=== PATIENT | female | born 1965 | race Caucasian/White ===

== ENCOUNTER 2020-02-24 11:14 | Outpatient (CLI) | payer OTHER | END 2020-02-24 20:32 | disposition home or self-care (01) | LOC: MLB 11:14 | PROVIDERS: ATTEND Obstetrics & Gynecology | DX: Z20.828 Contact with and (suspected) exposure to other viral communicable diseases (principal) ==

== ENCOUNTER 2020-07-08 17:28 | Inpatient (IN) | payer OTHER, SELFPAY ==
[~2020-07-08] VITALS: Ht 180.3 cm; Wt 68.9 kg
--- NOTE | 2020-07-08 17:38 | NUR ---
Patient ambulated with steady gait to bed 7.
--- NOTE | 2020-07-08 17:38 | NUR ---
DR GASTELUM AT BEDSIDE
[2020-07-08] MEDS ORDERED: DILTIAZEM 25 MG/5 ML VIAL IVP ONE ×2 (17:40→18:20)
[2020-07-08 17:42] VITALS: BP 153/89
--- NOTE | 2020-07-08 17:42 | NUR ---
55 Y/O FEMALE BIB , DR MITCHELL C/O RAPID HEART RATE AT 1300. DR MITCHELL, COMPLETED EKG AT HIS OFFICE WHICH SHOWED A FIB. PER , HE FOUND HIS SLUMPED AT HER DESK. PT STATED SHE FELT HER HEART RACING. DENIES N/V/SOB AND PAIN AT THIS TIME. PT DENIES LIGHTHEADEDNESS/DIZZINESS. PT IS A/O X4 WITH EVEN AND UNLABORED RESPIRATIONS. PT LAYING IN BED WITH BED IN LOWEST POSITION, BRAKES LOCKED, X1 SIDERAIL UP. 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
--- NOTE | 2020-07-08 17:45 | NUR ---
RAD AT BEDSIDE
[2020-07-08] MEDS ORDERED: NACL 0.9% 1,000 ML IV ONE (18:05)
[2020-07-08 18:12] LABS: BASOPHILS # (AUTO) 0.1 K/uL (0.00-0.22); BASOPHILS % (AUTO) 0.9 % (0.0-2.0); EOSINOPHILS # (AUTO) 0.1 K/uL (0-0.4); EOSINOPHILS % (AUTO) 1.2 % (0.0-4.0); HEMATOCRIT 47.7 % (36-48); HEMOGLOBIN 16.2 g/dL (12.0-16.0); LYMPHOCYTES # (AUTO) 1.5 K/uL (2.5-16.5); LYMPHOCYTES % (AUTO) 26.9 % (20.5-51.1); MEAN CORPUSCULAR HEMOGLOBIN 33 pg (27-31); MEAN CORPUSCULAR HGB CONC 34 g/dL (33-37); MEAN CORPUSCULAR VOLUME 96.5 fL (80-94); MONOCYTES # (AUTO) 0.7 K/uL (0.8-1.0); MONOCYTES % (AUTO) 13.1 % (1.7-9.3); NEUTROPHILS # (AUTO) 3.2 K/uL (1.8-7.7); NEUTROPHILS % (AUTO) 57.9 % (42.2-75.2); PLATELET COUNT (AUTO) 200 K/uL (140-450); RED BLOOD CELL COUNT(AUTO) 4.94 MIL/uL (4.20-5.40); RED CELL DISTRIBUTION WIDTH 12.7 % (11.6-13.7); WHITE BLOOD COUNT (AUTO) 5.5 K/uL (4.8-10.8)
[2020-07-08 18:28] LABS: ANION GAP 11.8 (8-16); CARBON DIOXIDE 26.9 mmol/L (21-32); CREATININE 0.7 mg/dL (0.6-1.3); POTASSIUM 3.7 mmol/L (3.5-5.1); TOTAL BILIRUBIN 0.4 mg/dL (0.0-1.0)
[2020-07-08 18:38] LABS: FREE T4 (FREE THYROXINE) 1.05 ng/dL (0.76-1.46); THYROID STIMULATING HORMONE 0.02 uIU/mL (0.34-3.74)
[2020-07-08] MEDS ORDERED: DILTIAZEM 125 MG in DEXTROSE 5% 100 ML IV ONE (18:40)
[2020-07-08] MEDS ORDERED: DILTIAZEM 125 MG/25 ML VIAL IV ONE (18:46)
[2020-07-08] MEDS ORDERED: METOPROLOL 5 MG/5 ML VIAL IVP ONE (19:00)
--- NOTE | 2020-07-08 19:12 | NUR ---
REPORT GIVEN TO SYLVIE SCHWARTZ. TRANSFER OF CARE AT THIS TIME.
--- NOTE | 2020-07-08 19:13 | NUR ---
RECEIVED TRANSFER OF CARE REPORT FROM CHAPARRITA SCHWARTZ FOR CONTINUATION OF CARE.
--- NOTE | 2020-07-08 19:24 | NUR ---
PT WAS FOUND AWAKE IN SEMI-GAMBLE'S POSITION IN BED. PT STATES NO PAIN AND NO DISTRESS. BED LOCKED IN LOWEST POSITION WITH 1 SIDE RAIL UP. WILL CONTINUE TO MONITOR.
--- NOTE | 2020-07-08 19:50 | NUR ---
ERICA SWAB COLLECTED AND WALKED TO LAB.
[2020-07-08] MEDS ORDERED: PROPOFOL 200 MG/20 ML VIAL IV ONE (20:25)
[2020-07-08] MEDS ORDERED: MIDAZOLAM 2 MG/2 ML VIAL IVP ONE (20:25)
--- NOTE | 2020-07-08 20:31 | NUR ---
PT WAS EDUCATED RISK AND BENEFITS ON CONSCIOUS SEDATION FOR CARDIOVERSION. PT UNDERSTOOD AND SIGNED CONSENT FOR CONSCIOUS SEDATION FOR CARDIOVERSION.
--- NOTE | 2020-07-08 20:33 | NUR ---
Dr. Vee at bedside
--- NOTE | 2020-07-08 20:49 | NUR ---
CALLED TO BEDSIDE FOR CONSCIOUS SEDATION/CARDIOVER. PT TOLERATED WELL
[2020-07-08] MEDS ORDERED: DOCUSATE SODIUM 100 MG GELCAP PO PRN (20:50)
[2020-07-08] MEDS ORDERED: LORazepam 2 MG/ML VIAL IM/IVP PRN (20:50)
[2020-07-08] MEDS ORDERED: ONDANSETRON 4 MG/2 ML VIAL IVP PRN (20:50)
[2020-07-08] MEDS ORDERED: HYDROcodone/APAP 5/325 MG 1 TAB TAB PO PRN (20:50)
[2020-07-08] MEDS ORDERED: ACETAMINOPHEN 325 MG TAB PO PRN (20:50)
[2020-07-08] MEDS ORDERED: MORPHINE SULFATE 2 MG/ML SYR IVP PRN (20:50)
[2020-07-08] MEDS ORDERED: ZOLPIDEM 5 MG TAB PO PRN (20:50)
--- NOTE | 2020-07-08 20:53 | NUR ---
SECOND EKG PERFORMED AT BEDSIDE. EKG READS SINUS RHYTHM @ 83
[2020-07-08 21:00] LABS: APPEARANCE,URINE CLEAR (CLEAR); BILIRUBIN,URINE NEGATIVE (NEGATIVE); BLOOD, URINE 1+ (NEGATIVE); COLOR,URINE YELLOW (YELLOW); LEUKOCYTE ESTERASE ,URINE TRACE (NEGATIVE); NITRITE, URINE NEGATIVE (NEGATIVE); UGLUCOSE NEGATIVE (NEGATIVE)
[2020-07-08 21:16] LABS: PROTHROMBIN TIME 9.4 secs (10.8-13.4)
--- NOTE | 2020-07-08 21:16 | NUR ---
Ultrasound at bedside.
[2020-07-08 21:17] LABS: WBC,URINE 0-5 /HPF (0-5)
[2020-07-08 21:24] LABS: CHOL/HDL RATIO 2.7 (1-4.5); FREE T4 (FREE THYROXINE) 1.03 ng/dL (0.76-1.46); MAGNESIUM 2.1 mg/dL (1.8-2.4); PHOSPHORUS 3.4 mg/dL (2.5-4.9); THYROID STIMULATING HORMONE 0.02 uIU/mL (0.34-3.74)
[2020-07-08] MEDS ORDERED: CHOL500040 PO (21:31)
[2020-07-08] MEDS ORDERED: [UNRECOGNIZED DRUG - CODE] PO (21:31)
[2020-07-08] MEDS ORDERED: [UNRECOGNIZED DRUG - CODE] PO (21:31)
--- NOTE | 2020-07-08 21:45 | NUR ---
RECEIVED REPORT OVER THE PHONE FROM SYLVIE ASSOCIATE DOCTOR NURSE FOR CONTINUITY OF CARE, PT IN STABLE CONDITION. LAST V/S FOLLOWS: T 98.0 P 82 R 22 B/P 112/60 02 99% ON ROOM AIR. PT WILL GO TO ROOM 118.
--- NOTE | 2020-07-08 21:48 | NUR ---
Patient will be admitted to care of DR MCCOLLUM. Admited to TELEMETRY. Will go to room 118A. Belongings list completed. Report to NATY SCHWARTZ.
--- NOTE | 2020-07-08 22:00 | NUR ---
PT WAS TRANSFERRED TO ROOM 118A VIA [place]. RECEIVING NURSE NATY SCHWARTZ AT BEDSIDE.
[2020-07-08 22:30] VITALS: BP 116/86
--- NOTE | 2020-07-08 22:30 | NUR ---
PT BROUGHT UP BY CARLA AND AMBULATED WITH STEADY GAIT TO THE BED. PT IS AOX4 WITH SKIN INTACT AND ON ROOM AIR. RESPIRATIONS ARE EVEN AND UNLABORED. PT HAS NO C/O OF CHEST PAIN OR SOB AT THIS TIME. SHE HAS A 20G ON LAC. NORMAL SALINE HUNG AND RUNNING AT 100MLS/HR ORDERED. ADMISSION QUESTIONS DONE. PT HAS NO PMH, SHE IS ALLERGIC TO NUTS. MRSA SWAB DONE. PT ORIENTED TO ROOM . AT BEDSIDE. ALL UNIVERSAL FALLS PRECAUTIONS IN PLACE.
[2020-07-08] MEDS: NACL 0.9% 1,000 ML IV SCH (22:58)
--- NOTE | 2020-07-08 23:00 | NUR ---
1 TAB NORCO GIVEN FOR MODERATE PAIN IN ARMS AND JAW DUE TO SORENESS AFTER CARDIOVERSION.
--- NOTE | 2020-07-09 01:30 | NUR ---
PT IN BED RESTING WITH EYES CLOSED BUT AROUSABLE TO NAME. PT HAS NO C/O VOICED AT THIS TIME. ALL UNIVERSAL PRECAUTIONS IN PLACE.
[2020-07-09 04:00] VITALS: BP 113/68
--- NOTE | 2020-07-09 04:00 | NUR ---
ROUNDS DONE PT IN BED NO C/O VOICED, ALL UNIVERSAL FALLS PRECAUTIONS IN PLACE.
[2020-07-09 06:33] LABS: BASOPHILS % (AUTO) 0.6 % (0.0-2.0); EOSINOPHILS # (AUTO) 0.1 K/uL (0-0.4); EOSINOPHILS % (AUTO) 1.4 % (0.0-4.0); HEMATOCRIT 40.5 % (36-48); HEMOGLOBIN 13.6 g/dL (12.0-16.0); LYMPHOCYTES # (AUTO) 1.2 K/uL (2.5-16.5); LYMPHOCYTES % (AUTO) 34.8 % (20.5-51.1); MEAN CORPUSCULAR HEMOGLOBIN 33 pg (27-31); MEAN CORPUSCULAR HGB CONC 34 g/dL (33-37); MEAN CORPUSCULAR VOLUME 97.9 fL (80-94); MONOCYTES # (AUTO) 0.4 K/uL (0.8-1.0); MONOCYTES % (AUTO) 11.2 % (1.7-9.3); NEUTROPHILS # (AUTO) 1.8 K/uL (1.8-7.7); PLATELET COUNT (AUTO) 150 K/uL (140-450); RED BLOOD CELL COUNT(AUTO) 4.14 MIL/uL (4.20-5.40); RED CELL DISTRIBUTION WIDTH 12.7 % (11.6-13.7); WHITE BLOOD COUNT (AUTO) 3.6 K/uL (4.8-10.8)
[2020-07-09 06:46] LABS: ANION GAP 9.9 (8-16); CARBON DIOXIDE 24.1 mmol/L (21-32); CREATININE 0.7 mg/dL (0.6-1.3)
[2020-07-09 06:48] LABS: MAGNESIUM 1.7 mg/dL (1.8-2.4); PHOSPHORUS 2.9 mg/dL (2.5-4.9)
--- NOTE | 2020-07-09 07:25 | NUR ---
RECEIVED REPORT FROM SUSTAINABILITY OFFICER RN FOR CONTINUITY OF CARE. PATIENT RESTING IN BED AWAKE. AAOX4 ON ROOM AIR. DENIES DISCOMFORT AT THIS TIME. SKIN INTACT. IV TO LEFT AC 20G INFUSING NS @ 100ML/HR. RESPIRATORY EVEN UNLABORED. NO ACUTE DISTRESS NOTED AT THIS TIME. SAFETY MEASURES IN PLACE, WILL CONTINUE TO MONITOR.
[2020-07-09 08:00] VITALS: BP 123/64
[2020-07-09] MEDS: NACL 0.9% 1,000 ML IV SCH (08:21)
--- NOTE | 2020-07-09 08:57 | NUR ---
INFORMED DR. MCCOLLUM THAT PATIENT'S MAGNESIUM LEVEL 1.7, NEW ORDER OBTAINED. ALSO INFORMED PT'S WBC 3.6. NO NEW ORDER OBTAINED. WILL CONTINUE TO MONITOR.
[2020-07-09] MEDS ORDERED: MAGNESIUM OXIDE 400 MG TAB PO SCH (09:10)
--- NOTE | 2020-07-09 09:11 | NUR ---
PATIENT HAS BEEN SCREENED AND CATEGORIZED LOW NUTRITION RISK. PATIENT WILL BE SEEN WITHIN 7 DAYS OF ADMISSION. 07/15/[address]
[2020-07-09] MEDS ORDERED: methIMAzole 5 MG TAB PO ONE (09:28)
--- NOTE | 2020-07-09 11:30 | NUR ---
SOCIAL WORK NOTE: Patient's Orientation Person Situation Place Time Information Provided By PATIENT Comments SW MET PATIENT AT BEDSIDE TO COMPLETE ASSESSMENT. Breeder Service Technician, Realtionship and Phone Number FLEX MITCHELL [phone] [facility] Power of Life Guard No Does Patient Have a POLST No Identifying Problems No Social Work Triggers Is A Social Work Consult Needed No Mandate Report Filed No Explanation Of Identifying Problems PATIENT IS A 55-YEAR-OLD FEMALE ADMITTED FOR AFIB W/ RVR. PATIENT HAS PMHX OF THYROID NODULE. PATIENT REPORTED NO HX OF MENTAL HEALTH OR SUBSTANCE ABUSE. Admitted From Home Pre-Admission Level Of Functioning Status Independent/Ambulatory Prior Resources/Services Used In Last 12 Months No Prior Resources Used Prior DME No Prior DME Used Dialysis Comments N/A Living Situation Lives With Family House Patient Had Caregiver No Home Support No Caregiver Issues Financial Issues No Known Financial Issue Referral To The Financial Counselor Needed No Factors/Needs No D/C Needs Identified Pt/Rep Participated In Discharge Plan Yes Patient/Family Agress With Discharge Plan Yes Discharge Plan Comments TENTATIVE DISCHARGE PLAN IS FOR PATIENT TO RETURN HOME. DC Plan Status Initiated
--- NOTE | 2020-07-09 11:55 | NUR ---
DC PLANNIN YRS OLD FEMALE PATIENT WAS ADMITTED FROM HOME WITH A DX OF A-FIB WITH RVR. PT HAS A HX OF MULTIPLE THYROID NODULES. CXR SHOWED NEGATIVE FOR CARDIOPULMONARY DISEASE. RAPID COVID TEST NEGATIVE. US THYROID SHOWED MULTIPLE NODULES WELL CYSTIC NODULES. CONSULTED WITH SOURCING ASSOCIATE AND CONSTRUCTION PERSON. ADMINISTERED IVF, IV ABX ROCEPHIN FOR UTI . UA SHOWED +1 BACTERIA. ECHO ORDERED. 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 SHE WILL CONTACT ME BACK
[2020-07-09 12:00] VITALS: BP 137/78
[2020-07-09] MEDS ORDERED: METOPROLOL 25 MG TAB PO SCH ×2 (13:10→21:00)
--- NOTE | 2020-07-09 14:43 | NUR ---
FAX OF REQUESTS OF COPY OF H&P WAS FAXED OVER TO DR. KEVON MARINO'S OFFICE. [phone], PHONE NUMBER [phone]. WAITING FOR RESPONSE.
[2020-07-09] MEDS ORDERED: METO25TA PO (15:11)
[2020-07-09] MEDS ORDERED: THYR60TA7 PO (15:15)
[2020-07-09] MEDS ORDERED: SULF-59 PO (15:17)
[2020-07-09] MEDS ORDERED: LACT-2 (15:18)
--- NOTE | 2020-07-09 15:45 | NUR ---
F/U WITH DR. MARINO' OFFICE. [phone]. SPOKE WITH AGUSTINA. PER AGUSTINA, PATIENT HAD 1 APPOINTMENT BACK TO 2019, HOWEVER, IT WAS CANCELED AND KEVON DAWSON NOT IN THAT OFFICE ANYMORE, SHE HAS NO IDEA WHERE THE DR. MARINO' OFFICE MOVED TO.
[2020-07-09 16:00] VITALS: BP 131/70
--- NOTE | 2020-07-09 17:45 | NUR ---
DISCHARGE INSTRUCTIONS PROVIDED. DISCHARGE PAPER SIGNED. VERBALIZED UNDERSTANDING OF THE MEDICATION CHANGES AND MD FOLLOW UP. DISCHARGE PROTOCOL FOLLOWED. PATIENT IN STABLE CONDITION.
[2020-07-09] MEDS ORDERED: APIX5TAB PO (17:46)
--- NOTE | 2020-07-09 17:50 | NUR ---
PATIENT BEEN PICKED UP BY HER . PATIENT BEING DISCHARGED, PATIENT IN STABLE CONDITION.
[2020-07-10] MEDS ORDERED: methIMAzole 5 MG TAB PO SCH (09:00)
== END 2020-07-09 17:50 | disposition home or self-care (01) | DRG 309 ==
LOC: MED 17:28 → MTU 20:53
PROVIDERS: ADMIT Family Medicine; ATTEND Family Medicine
PROC: 5A2204Z Restoration of Cardiac Rhythm, Single (ICD-10-PCS; principal; 2020-07-08)
DX: I48.91 Unspecified atrial fibrillation (principal); N39.0 Urinary tract infection, site not specified; E05.20 Thyrotoxicosis with toxic multinodular goiter without thyrotoxic crisis or storm; E83.42 Hypomagnesemia; Z20.822 Contact with and (suspected) exposure to COVID-19; Z91.018 Allergy to other foods; Z79.899 Other long term (current) drug therapy; E06.3 Autoimmune thyroiditis
CPT/HCPCS: 36415; 71045; 76536; 80048; 80053; 81001; 82150; 83036; 83690; 83735; 83880; 84100; 84439; 84443; 84484; 85025; 85379; 85610; 85730; 87081; 87086; 93005; 96361; 96374; 96375; 96376; 99285; J0696; J2250; J2704; J3490; J7030; J7060

== ENCOUNTER 2020-08-23 11:42 | Outpatient (CLI) | payer OTHER, SELFPAY ==
[~2020-08-23 11:42] MED LIST: APIX5TAB PO; CHOL500040 PO; LACT-2; METO25TA PO; SULF-59 PO; THYR60TA7 PO; [UNRECOGNIZED DRUG - CODE] PO
== END 2020-08-23 20:57 | disposition home or self-care (01) ==
LOC: MLB 11:42
PROVIDERS: ATTEND Obstetrics & Gynecology
DX: Z20.822 Contact with and (suspected) exposure to COVID-19 (principal)